=== PATIENT | female | born 1990 | race Caucasian/White ===

== ENCOUNTER 2016-07-16 22:31 | Emergency (ER) | payer SELFPAY ==
[~2016-07-16] VITALS: Ht 157.5 cm; Wt 75.3 kg
--- NOTE | 2016-07-16 22:35 | NUR ---
Pt placed in hallway for evaluation
[2016-07-16 22:40] VITALS: BP_SYST 138
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
--- NOTE | 2016-07-16 23:30 | NUR ---
MD Sweet examining pt in the hallway
[2016-07-16 23:40] VITALS: BP_SYST 132
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
== END 2016-07-16 23:40 ==
LOC: SED 22:31
DX: Z02.89 Encounter for other administrative examinations (principal); E11.9 Type 2 diabetes mellitus without complications; R51 Headache
CPT/HCPCS: 99283